=== PATIENT | female | born 2000 | race Caucasian/White ===

== ENCOUNTER 2018-01-12 21:39 | Outpatient (CLI) | payer BC | END 2018-01-12 23:59 | disposition critical access hospital (66) | LOC: EMS 21:39 | PROVIDERS: ATTEND Surgery | DX: R09.89 Other specified symptoms and signs involving the circulatory and respiratory systems (principal); L29.9 Pruritus, unspecified | CPT/HCPCS: A0425; A0427 ==

== ENCOUNTER 2018-01-12 22:05 | Emergency (ER) | payer BC ==
[2018-01-12] MEDS ORDERED: DEXAMETHASONE 10 MG/ML VIAL IVP STA (22:14)
--- NOTE | 2018-01-12 22:15 | ED Physician Documentation ---
History of Present Illness - Stated complaint Stated Complaint: ALLERGIC REACTION - Chief complaint Chief Complaint: Allergic Rx - History obtained from History obtained from: Patient, Family, EMS - History of Present Illness Timing: How many hours ago (1) Pain level max: 0 Pain level now: 0 Improved by: benadryl Worsened by: nothing - Additonal information Additional information: Patient is a 17-year-old female who is visiting from [place]. She states that since she was approximately 5 years old she randomly breaks out in hives. They have not found a cause for this. Usually resolves with Benadryl. Last time this happened was a month ago. She states that it occurred while she was showering tonight. She felt a slight tightness in her throat this time which is what concerned her and brought her to the emergency department. She took 50 mg of Benadryl prior to arrival. Review of Systems Constitutional: denies: Fever, Chills Nose: denies: Rhinorrhea / runny nose, Congestion Throat: denies: Sore throat Cardiac: denies: Chest pain / pressure Respiratory: denies: Cough GI: denies: Nausea, Vomiting, Diarrhea : denies: Dysuria, Frequency, Hesitancy, Now EGA Musculoskeletal: denies: Neck pain, Back pain Neurologic: denies: Focal weakness, Numbness PD PAST MEDICAL HISTORY - Past Medical History Past Medical History: No - Past Surgical History Past Surgical History: No - Present Medications Home Medications: Ambulatory Orders Medication Instructions Recorded Confirmed Epinephrine [Epipen 2-Xavier] 0.3 mg IJ ONCE #1 auto.injct 01/12/18 predniSONE [Prednisone] 20 mg PO DAILY #5 tablet 01/12/18 - Allergies Allergies/Adverse Reactions: Allergies Allergy/AdvReac Type Severity Reaction Status Date / Time No Known Drug Allergies Allergy Verified 01/12/18 22:11 - Living Situation Living Situation: reports: With family Living Arrangement: reports: At home - Social History Does the pt smoke?: No Does the pt drink ETOH?: No Does the pt have substance abuse?: No - Family History Family history: reports: Non contributory PD ED PE NORMAL - Vitals Vital signs reviewed: Yes - General General: Alert and oriented X 3, No acute distress - HEENT HEENT: Moist mucous membranes - Neck Neck: Supple, no meningeal sign - Cardiac Cardiac: RRR, Strong equal pulses - Respiratory Respiratory: No respiratory distress, Clear bilaterally - Abdomen Abdomen: Soft, Non tender, Non distended - Derm Derm: Warm and dry, Other (diffuse urticaria, blanches easily) - Neuro Neuro: Alert and oriented X 3 Results - Vitals Vitals: Vital Signs - 24 hr 01/12/18 01/12/18 22:06 23:04 Temperature 36.9 C Heart Rate 118 H 77 Respiratory 18 16 Rate Blood Pressure 119/87 H 119/68 O2 Saturation 98 95 Oxygen O2 Source Room air PD MEDICAL DECISION MAKING - ED course Complexity details: re-evaluated patient, considered differential, d/w patient, d/w family ED course: Patient is a 17-year-old female who developed diffuse urticaria tonight of unclear etiology. This appears to be a chronic ongoing issue for her. She was given steroids in the emergency department, had taken Benadryl prior to arrival. Her urticaria resolved. No wheezing or stridor. Normal oropharyngeal exam on serial examination. Will have her follow-up with an stereotyper helper when she returns to [place]. She is well-appearing, nontoxic. Patient counseled regarding signs and symptoms for which I believe and urgent re-evaluation would be necessary. Patient with good understanding of and agreement to plan and is comfortable going home at this time This document was made in part using voice recognition software. While efforts are made to proofread this document, sound alike and grammatical errors may occur. Departure - Departure Disposition: 01 Home, Self Care Clinical Impression: Urticaria Condition: Good Instructions: ED Urticaria Follow-Up: your,doctor in 1 week [Other] Prescriptions: Epinephrine [Epipen 2-Xavier] 0.3 mg IJ ONCE #1 auto.injct predniSONE [Prednisone] 20 mg PO DAILY #5 tablet Comments: Return if you worsen. You should follow up with an stereotyper helper when you return to [place]. Discharge Date/Time: 01/12/18 23:05
[2018-01-12 23:05] VITALS: BP 119/68
== END 2018-01-12 23:05 | disposition home or self-care (01) ==
LOC: ED 22:05
DX: L50.9 Urticaria, unspecified (principal)
CPT/HCPCS: 96374; 99283